=== PATIENT | male | born 1995 | race Caucasian/White ===

== ENCOUNTER 2018-03-04 11:57 | Emergency (ER) | payer OTHER ==
[2018-03-04 12:12] VITALS: BP 129/81; PULSE 55; TEMP 97.8; BMI 25.8
[2018-03-04] MEDS ORDERED: FLUORESCEIN NA 1 EA STRIP ONE (12:14)
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
[2018-03-04] MEDS ORDERED: FLUORESCEIN NA 1 EA STRIP OD ONE (12:17)
== END 2018-03-04 13:55 | disposition home or self-care (01) ==
LOC: JERFT 11:57
PROC: 08C0XZZ Extirpation of Matter from Right Eye, External Approach (ICD-10-PCS; principal; 2018-03-04)
DX: S05.51XA Penetrating wound with foreign body of right eyeball, initial encounter (principal); W22.8XXA Striking against or struck by other objects, initial encounter; Y93.89 Activity, other specified; Y92.69 Other specified industrial and construction area as the place of occurrence of the external cause; Y99.0 Civilian activity done for income or pay
CPT/HCPCS: 99281-25

== ENCOUNTER 2018-08-19 01:11 | Inpatient (IN) | payer OTHER ==
[2018-08-19] MEDS ORDERED: LIDOCAINE 1%/EPI 1:100000 (20 ML MULTI DOSE VIAL) ONE ×2 (01:32→02:28)
[2018-08-19] MEDS ORDERED: DIPHTH,PERTUSS(ACELL),TET 0.5 ML DISP.SYRIN IM ONE ×2 (01:44→01:54)
[2018-08-19] MEDS ORDERED: SODIUM CHLORIDE 1,000 ML IV STA (01:46)
[2018-08-19] MEDS ORDERED: CEFAZOLIN 1 GM in DEXTROSE 5%-WATER - 50 ML IVPB ONE (01:46)
[2018-08-19] MEDS ORDERED: CEFAZOLIN 1 GM/D5W 1 GM/50 ML BAG ONE (01:54)
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
[2018-08-19 02:12] LABS: BASO % 0.5 % (0-2.0); EOS % 1.4 % (0-4.5); HEMATOCRIT 40.3 % (35.4-49); HEMOGLOBIN 13.6 GM/dL (11.7-16.9); LYMPH % 15.7 % (8-40); MCH 31.2 pg (25.7-33.7); MCHC 33.6 g/dl (32.0-35.9); MEAN CELL VOLUME 92.8 fl (80-96); MEAN PLT VOLUME 8.8 fl (7.5-11.1); MONO % 6.5 % (3.8-10.2); NEUT % 75.9 % (42.8-82.8); PLATELET COUNT 289 K/MM3 (134-434); RBC 4.34 M/mm3 (4.00-5.60); RDW 13.4 % (11.9-15.9); WHITE BLOOD COUNT 11.1 K/mm3 (4.0-10.0)
[2018-08-19 02:26] LABS: INR 1.13 (0.83-1.09); PROTHROMBIN TIME (PATIENT) 13.4 SEC (9.7-13.0)
[2018-08-19 02:28] LABS: ACTIVATED PTT 25.9 SECONDS (25.2-36.5)
[2018-08-19 02:41] VITALS: BMI 27.4
[2018-08-19 02:43] LABS: ALBUMIN 3.7 g/dl (3.4-5.0); ALK PHOS 91 U/L (45-117); ANION GAP 11 MMOL/L (8-16); BILIRUBIN,TOTAL 0.4 mg/dL (0.2-1); BLOOD UREA NITROGEN 11 mg/dL (7-18); CHLORIDE 109 mmol/L (98-107); CO2 18 mmol/L (21-32); CREATININE 0.8 mg/dL (0.55-1.3); GLUCOSE,RANDOM 122 mg/dL (74-106); POTASSIUM 3.7 mmol/L (3.5-5.1); SGOT/AST 24 U/L (15-37); SGPT/ALT 32 U/L (13-61); SODIUM 138 mmol/L (136-145)
[2018-08-19] MEDS ORDERED: LIDOCAINE 1%/EPI 1:100000 (20 ML MULTI DOSE VIAL) INF ONE (02:52)
[2018-08-19] MEDS ORDERED: morphine CARPU-JECT 4 MG/1 ML DISP.SYRIN IVPUSH ONE (02:52)
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
[2018-08-19] MEDS ORDERED: morphine SULFATE 4 MG/ML VIAL ONE (03:31)
[2018-08-19] MEDS ORDERED: FOLIC ACID INJECTION - 1 MG, THIAMINE HCL 100 MG, MULTIVIT INJECTION ADULT 10 ML in SOD... IVPB ONE (03:56)
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
[2018-08-19] MEDS ORDERED: SODIUM CHLORIDE 500 ML IV STA (09:02)
[2018-08-19] MEDS ORDERED: PNEUMOC 13-VAL CONJ-DIP CRM/PF 0.5 ML DISP.SYRIN IM ONE (09:13)
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
[2018-08-19] MEDS ORDERED: PNEUMOCOCCAL 23 VACCINE 0.5 ML VIAL IM ONE (12:00)
[2018-08-19] MEDS ORDERED: FLU VACCINE QUAD 60 MCG/0.5 ML (MDV 18-19) IM ONE (12:00)
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
[2018-08-19] MEDS ORDERED: ACETAMINOPHEN 325 MG TABLET (FP) PO PRN (13:12)
[2018-08-19] MEDS: THIAMINE HCL 100 MG TABLET (FP) PO SCH (13:29)
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
[2018-08-19] MEDS: CEFAZOLIN 1 GM/D5W 1 GM/50 ML BAG IVPB SCH ×2 (18:35→21:29)
[2018-08-19] MEDS: SODIUM CHLORIDE 1,000 ML IV SCH (21:30)
[2018-08-20] MEDS: CEFAZOLIN 1 GM/D5W 1 GM/50 ML BAG IVPB SCH ×4 (02:17→21:29)
[2018-08-20] MEDS: THIAMINE HCL 100 MG TABLET (FP) PO SCH (09:44)
[2018-08-20] MEDS: SODIUM CHLORIDE 1,000 ML IV SCH (09:44)
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
[2018-08-21] MEDS: CEFAZOLIN 1 GM/D5W 1 GM/50 ML BAG IVPB SCH ×2 (03:08→09:38)
[2018-08-21] MEDS: SODIUM CHLORIDE 1,000 ML IV SCH ×2 (05:09→11:46)
[2018-08-21 08:03] LABS: BASO % 0.6 % (0-2.0); EOS % 2.8 % (0-4.5); HEMATOCRIT 30.5 % (35.4-49); HEMOGLOBIN 10.3 GM/dL (11.7-16.9); LYMPH % 29.8 % (8-40); MCH 31.2 pg (25.7-33.7); MCHC 33.7 g/dl (32.0-35.9); MEAN CELL VOLUME 92.4 fl (80-96); MEAN PLT VOLUME 8.4 fl (7.5-11.1); MONO % 11.8 % (3.8-10.2); PLATELET COUNT 174 K/MM3 (134-434); RDW 12.9 % (11.9-15.9); WHITE BLOOD COUNT 5.6 K/mm3 (4.0-10.0)
[2018-08-21 08:29] LABS: ANION GAP 6 MMOL/L (8-16); BLOOD UREA NITROGEN 8 mg/dL (7-18); CALCIUM 7.9 mg/dL (8.5-10.1); CHLORIDE 107 mmol/L (98-107); CO2 26 mmol/L (21-32); CREATININE 0.6 mg/dL (0.55-1.3); GLUCOSE,RANDOM 92 mg/dL (74-106); POTASSIUM 3.9 mmol/L (3.5-5.1); SODIUM 139 mmol/L (136-145)
[2018-08-21 08:51] LABS: INR 1.04 (0.83-1.09); PROTHROMBIN TIME (PATIENT) 12.3 SEC (9.7-13.0)
[2018-08-21 08:54] LABS: ACTIVATED PTT 30.9 SECONDS (25.2-36.5)
[2018-08-21] MEDS: THIAMINE HCL 100 MG TABLET (FP) PO SCH (09:38)
[2018-08-21] MEDS ORDERED: MIDAZOLAM HCL 2 MG/2 ML SINGLE DOSE VIAL ONE ×2 (12:46)
[2018-08-21] MEDS ORDERED: ROCURONIUM BROMIDE 50 MG/5 ML VIAL ONE (12:53)
[2018-08-21] MEDS ORDERED: PROPOFOL 20 ML ONE (12:53)
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
[2018-08-21] MEDS ORDERED: BUPIVACAINE HCL/PF (5 MG/ML) 30 ML VIAL IJ ONE (14:04)
[2018-08-21] MEDS ORDERED: LIDOCAINE HCL 1%, 10 MG/ML (20ML VIAL) SNB ONE (14:05)
[2018-08-21] MEDS ORDERED: SODIUM CHLORIDE 1,000 ML IV SCH (14:12)
[2018-08-21] MEDS ORDERED: ACETAMINOPHEN 325 MG TABLET (FP) PO PRN (14:12)
[2018-08-21] MEDS ORDERED: ceFAZolin SODIUM 1 GM VIAL ONE (14:46)
[2018-08-21] MEDS ORDERED: CEFAZOLIN 1 GM/D5W 1 GM/50 ML BAG IVPB SCH (15:00)
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
[2018-08-21 15:46] VITALS: TEMP 98.2
[2018-08-21 17:59] VITALS: BP 129/65; PULSE 76
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
[2018-08-22] MEDS ORDERED: THIAMINE HCL 100 MG TABLET (FP) PO SCH (10:00)
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
== END 2018-08-21 19:11 | disposition home or self-care (01) | DRG 26 ==
LOC: JER 01:11 → JERBED 03:02 → J7W 05:18 → OBSVTOIN 08:01
PROVIDERS: ADMIT Internal Medicine; ATTEND Internal Medicine
PROC: 0XQK0ZZ Repair Left Hand, Open Approach (ICD-10-PCS; principal; 2018-08-19)
PROC: 0CQ00ZZ Repair Upper Lip, Open Approach (ICD-10-PCS; 2018-08-19)
PROC: 0HQ1XZZ Repair Face Skin, External Approach (ICD-10-PCS; 2018-08-19)
PROC: HZ2ZZZZ Detoxification Services for Substance Abuse Treatment (ICD-10-PCS; 2018-08-19)
PROC: 0XJ Anatomical Regions, Upper Extremities, Inspection (ICD-10-PCS; 2018-08-21)
PROC: 01Q60ZZ Repair Radial Nerve, Open Approach (ICD-10-PCS; 2018-08-21)
DX: S64.21XA Injury of radial nerve at wrist and hand level of right arm, initial encounter (principal); S64.490A Injury of digital nerve of right index finger, initial encounter; S61.210A Laceration without foreign body of right index finger without damage to nail, initial encounter; S01.511A Laceration without foreign body of lip, initial encounter; S01.81XA Laceration without foreign body of other part of head, initial encounter; F10.229 Alcohol dependence with intoxication, unspecified; R40.0 Somnolence; Y90.7 Blood alcohol level of 200-239 mg/100 ml; X99.1XXA Assault by knife, initial encounter; Y92.89 Other specified places as the place of occurrence of the external cause
CPT/HCPCS: 36415; 70450-TC; 71045-TC-FY; 73130-TC-RT-FY; 80048; 80053; 80307; 85025; 85610; 85730; 86850; 86900; 86901; 90688; 90715; 90732; 94760; 99285-25; G0008; G0009; G0378; J7030